=== PATIENT | female | born 1955 | race Caucasian/White ===

== ENCOUNTER → 2021-02-27 | Outpatient (CLI) | payer OTHER ==
[~2021-02-27] MED LIST: ALDACTONE25 MG PO; CLONAZEPAM1 MG PO; COLACE100 MG PO; CREON DR 24,001 EACH PO; DICLOFENAC 1% TOP; EMGALITY120 MG/1 M SQ; ESTRACE1 MG PO; FLONASE 0.05% N16 GM; GABAPENTIN300 MG PO; GABAPENTIN400 MG PO; ISOSORBIDE MONO30 MG PO; K-DUR TAB 10 M10 MEQ PO; KEPPRA750 MG PO; LEXAPRO20 MG PO; MELATONIN10 M3 PO; METOPROLOL TART25 MG PO; NITROSTAT 0.40.4 MG SL; NORCO 5-325 TA1 EACH PO; NORVASC2.5 MG PO; OMEPRAZOLE40 MG PO; PHENERGAN 25 MG25 M1 PO; PLAVIX 75 MG TA75 MG PO; PRAVACHOL40 MG PO; PROGESTERONE100 MG PO; RANOLAZINE ER500 MG PO; REXULTI PO; SINEMET 25/100 T1 EA PO; SUCRALFATE1 GM PO; SYMBICORT 160-1 INHA INH; SYMBICORT 16010.2 GM INH; TOPAMAX100 MG PO; VENTOLIN HFA 66.7 GM INH; ZANAFLEX4 MG PO; ZYRTEC10 M3 PO
[2021-02-27 12:42] LABS: HEMOGLOBIN 13.6 gm/dl (12.3-15.3); RED BLOOD COUNT 4.03 M/UL (4.00-5.10); WHITE BLOOD COUNT 5.8 K/UL (4.5-11.0)
[2021-02-27 13:04] LABS: BUN/CREATININE RATIO 10 (0-10)
== END ==
LOC: LAB 12:01
PROVIDERS: Internal Medicine Interventional Cardiology
DX: I25.119 Atherosclerotic heart disease of native coronary artery with unspecified angina pectoris (principal); I10 Essential (primary) hypertension
CPT/HCPCS: 36415; 80048; 85025; 85610; 85730; 93005

== ENCOUNTER → 2021-03-11 | Outpatient (CLI) | payer OTHER | LOC: CATH 10:00 | DX: I25.118 Atherosclerotic heart disease of native coronary artery with other forms of angina pectoris (principal); I11.0 Hypertensive heart disease with heart failure; I50.9 Heart failure, unspecified; E11.9 Type 2 diabetes mellitus without complications; J44.9 Chronic obstructive pulmonary disease, unspecified; E78.5 Hyperlipidemia, unspecified; F17.210 Nicotine dependence, cigarettes, uncomplicated; I49.5 Sick sinus syndrome; Z95.5 Presence of coronary angioplasty implant and graft; Z88.5 Allergy status to narcotic agent; Z88.8 Allergy status to other drugs, medicaments and biological substances; Z79.02 Long term (current) use of antithrombotics/antiplatelets; Z79.899 Other long term (current) drug therapy | CPT/HCPCS: 99152; 99153; C1769; J1644; J2250; J3010; J7030; Q9967 ==